=== PATIENT | male | born 1965 | race Caucasian/White ===

== ENCOUNTER 2019-10-16 17:05 | Inpatient (IN) | payer OTHER ==
[~2019-10-16] VITALS: Ht 190.5 cm; Wt 111.1 kg
[2019-10-16] VITALS (9 sets, daily range): BP systolic 139–223; BP diastolic 80–135
[2019-10-16 17:29] LABS: ABSOLUTE BASOPHILS 0.1 thou/uL (0.0-0.2); ABSOLUTE EOSINOPHILS 0.1 thou/uL (0.0-0.7); ABSOLUTE LYMPHOCYTES 3.2 thou/uL (0.8-5.3); ABSOLUTE NEUTROPHILS 12.4 thou/uL (1.6-8.1); BASOPHILS 0.8 %; EOSINOPHILS 0.6 %; HEMATOCRIT 53.4 % (42.0-52.0); HEMOGLOBIN 18.2 gm/dL (14.0-18.0); LYMPHOCYTES 19.1 %; MCH 29.4 pg (26.0-34.0); MCHC 34.1 g/dL (28.0-37.0); MCV 86.1 fL (80.0-100.0); MONOCYTES 6.2 %; MPV 8.4 fl. (7.2-11.1); NUCLEATED RBCS 0 /100WBC; PLATELET COUNT* 375 thou/uL (150-400); POLYS 73.3 %; RDW-CV 14.4 % (10.5-14.5); WBC 16.9 thou/uL (4.0-11.0)
[2019-10-16 17:33] LABS: POTASSIUM 4.4 mmol/L (3.5-5.1)
[2019-10-16 17:34] LABS: APTT 27.1 Seconds (25.0-31.3); PROTIME 10.1 Seconds (9.20-11.50)
[2019-10-16] MEDS ORDERED: HUMALOG100 UNIT/1 SUBQ (17:55)
[2019-10-16 21:14] LABS: ANION GAP 11 mmol/L (7-16); BUN 14 mg/dL (7-18); CALCIUM 8.2 mg/dL (8.5-10.1); CHLORIDE 101 mmol/L (98-107); CO2 26 mmol/L (21-32); CREATININE 0.9 mg/dL (0.6-1.3); GLUCOSE 356 mg/dL (70-99); SODIUM 138 mmol/L (136-145)
[2019-10-16 21:18] LABS: CHOLESTEROL 209 mg/dL (<200); HDL CHOLESTEROL 27 mg/dL (>40); LDL CHOLESTEROL 128 mg/dL (<100); TC:HDL 7.7 Ratio (Not establshd); TRIGLYCERIDE 274 mg/dL (<150); VLDL 55 mg/dL (<40)
[2019-10-16 21:22] LABS: SERUM ASSESSMENT Clear
[2019-10-16 21:31] LABS: CK-MB MASS 212.4 ng/mL (<0.5-3.6)
[2019-10-16 21:40] LABS: TROPONIN-I LEVEL 123.91 ng/mL (<0.06)
[2019-10-17] VITALS (15 sets, daily range): BP systolic 105–157; BP diastolic 18–87
[2019-10-17 04:09] LABS: HEMATOCRIT 49.8 % (42.0-52.0); HEMOGLOBIN 16.6 gm/dL (14.0-18.0); MCHC 33.4 g/dL (28.0-37.0); MCV 86.6 fL (80.0-100.0); MPV 8.3 fl. (7.2-11.1); RBC 5.75 mil/uL (4.50-6.00); RDW-CV 14.2 % (10.5-14.5); WBC 15.2 thou/uL (4.0-11.0)
[2019-10-17 05:01] LABS: ALBUMIN 3.4 g/dL (3.4-5.0); ALKALINE PHOSPHATASE 65 U/L (46-116); ANION GAP 11 mmol/L (7-16); BUN 16 mg/dL (7-18); CALCIUM 8.4 mg/dL (8.5-10.1); CHLORIDE 105 mmol/L (98-107); CK-MB MASS 191.2 ng/mL (<0.5-3.6); CO2 24 mmol/L (21-32); CREATININE 0.9 mg/dL (0.6-1.3); GLUCOSE 250 mg/dL (70-99); POTASSIUM 3.7 mmol/L (3.5-5.1); SGOT 533 U/L (15-37); SGPT 78 U/L (30-65); SODIUM 140 mmol/L (136-145); TOTAL BILIRUBIN 0.6 mg/dL (<0.1-1.0); TOTAL PROTEIN 6.5 g/dL (6.4-8.2)
[2019-10-17 06:15] LABS: TROPONIN-I LEVEL > 200.00 ng/mL (<0.06)
--- NOTE | 2019-10-17 09:33 | EKG ---
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: : 1965 Requested By: Gary Jaramillo Order Number: [id number] Reading MD: Bora Craig Measurements Intervals [place] Rate: 58 P: 67 SC: 138 QRS: 41 QRSD: 157 T: 102 QT: 501 QTc: 493 Interpretive Statements Sinus rhythm Right bundle branch block Inferior infarct, acute (RCA) Probable RV involvement, suggest recording right precordial leads No previous ECG available for comparison Electronically Signed On 10-17-2019 9:32:14 CDT by Bora Craig [email or web address] <ELECTRONICALLY SIGNED> By: Bora Craig MD, FACC 10/17/1930 1 Bora Craig MD, [facility] /EPI
[2019-10-17 09:46] LABS: CK-MB MASS 134.3 ng/mL (<0.5-3.6)
[2019-10-17 09:47] LABS: TROPONIN-I LEVEL 181.33 ng/mL (<0.06)
--- NOTE | 2019-10-17 10:48 | EKG ---
[place] [address] ELECTROCARDIOGRAM REPORT Name: PRECIOUS ASHBY Room: [address] IN M.R.#: [id number] Admission: 10/16/19 Attend Phys: Gary Jaramillo, Discharge: Date of : 69 Date of Service: 10/16/19 1709 Report #: [id number] THIS REPORT FOR: //name// [facility] ED Test Date: 2019-10-16 Test Time: 17:09:26 Pat Name: PRECIOUS ASHBY Department: Room: [facility] Gender: M Gusset Stitcher: TP : 1965 Requested By: Modesto Raya Order Number: [id number] MD: Bora Craig Measurements Intervals [place] Rate: 99 P: 57 OK: 133 QRS: 95 QRSD: 158 T: 94 QT: 362 QTc: 465 Interpretive Statements Sinus tachycardia ventricular premature complexes Probable left atrial enlargement RBBB and LPFB Inferior infarct, acute (RCA) Probable RV involvement, suggest recording right precordial leads Baseline wander in lead(s) V5 No previous ECG available for comparison Electronically Signed On 10-17-2019 10:47:14 CDT by Bora Craig [email or web address] <ELECTRONICALLY SIGNED> By: Bora Craig MD, FACC 10/17/19 1047 1709 1709 Bora Craig MD, FAC /EPI
--- NOTE | 2019-10-17 15:02 | CARD ---
[address] [address] CARDIAC CATH REPORT Name: PRECIOUS ASHBY Room: [address] IN [facility]#: [id number] Admission: 10/16/19 Attend Phys: Gary Jaramillo MD Discharge: Date of : [birth year] Report #: [id number] THIS REPORT FOR: //name// cc: HUGO - No family physician/PCP HUGO - No family physician/PCP ~ APPROVED REPORT Study performed: 10/16/2019 17:15:56 Patient Details Patient Status: ED Room #: The patient is a 54 year-old male Event Personnel Gary Jaramillo Sr Technical Sales Consultant, Sherley Chandra RN, Jamilah Rivera RTR ScrGeoff anders Jessie RTR Monitor, Conrad Valadez Tobacco Sample Puller Procedures Performed Art Access - R femoral artery Left Heart Cath w/or w/o Coronaries JOSE Revasc AMI Total/Sub Single RCA Cardioversion Hemostasis w/ Angioseal; DC cardioversion with rhythm reverting from atrial fibrillation to sinus after loading with amiodarone Indication STEMI Risk Factors Hypercholesterolemia Admission/Lab Medications/Medications given during procedure Angiomax bolus and infusion; amiodarone boluses Procedure Narrative The patient was brought emergently to the Cardiac Catheterization Laboratory and was prepped and draped in a sterile manner. The right femoral was infiltrated with 2% Lidocaine subcutaneous anesthesia. A Convoy 6 FR sheath was inserted into the right femoral artery. Coronary angiography was performed using coronary diagnostic catheters. The right coronary system was accessed and visualized with a Diagnostic 6 Fr JR 4 catheter. The left coronary system was accessed and visualized with a Diagnostic 6 Fr JL 4 catheter. The left ventricle was accessed and visualized with a Diagnostic 6 Fr Pigtail catheter. Left ventricular/Aortic Valve gradient assessed via catheter pullback. Closure device was deployed [place] [address] CARDIAC CATH REPORT Name: PRECIOUS ASHBY Room: [address]#: [id number] Admission: 10/16/19 Attend Phys: Gary Jaramillo MD Discharge: Date of : 69 Report #: [id number] STS 6Fr. The patient tolerated the procedure well and there were no complications associated with the procedure. There was no hematoma. The patient was cardioverted at 300 J two times. Intraoperative Conscious Sedation Sedation start time: 17:40 Case end Time: 18:33 Fentanyl 150 mcg Versed 5 mg Fluoro Time: 8.5 minutes Dose: DAP 14191 cGycm2 1523 mGy Contrast Type and Amount: Visipaque 200 ml Coronary Angiography The patient's coronary anatomy is right dominant. Diagnostic Cath Left Main 0% narrowing LAD 40% mid LAD narrowing Circumflex 30% mid circumflex narrowing Right Coronary 100% occlusion of the dominant right coronary artery just beyond the acute margin with prominent intraluminal thrombus Left Ventriculography Left Ventriculography was not performed. Hemodynamics The aortic pressure is 116/80 mmHg with a mean of 93 mmHg. The left ventricular pressure is 130/11 mmHg with a mean of mmHg. The left ventricular end diastolic pressure is 21 mmHg. There was no gradient across the aortic valve upon pullback. PCI Technique Lesion Anticoagulation was achieved with Angiomax Drip. Patient was preloaded with Angiomax IV 17 ml. Percutaneous coronary intervention was performed on the distal right coronary artery. The lesion stenosis prior to intervention was 100% with АННА 0 flow. A 6F JR 4.0 Guide Catheter was used to engage the right ostium. A IG: BMW 190cm Interventional Guidewire was used to cross the lesion. BALLOON DILATION A Balloon catheter Trek RX 2.5 X 12 was inserted and inflated up to 12.00atm for 10seconds. Additional Inflation: 18.00atm for 17seconds. Additional Inflation: 18.00atm for 15seconds. [place] [address] CARDIAC CATH REPORT Name: PRECIOUS ASHBY Room: [address]#: [id number] Admission: 10/16/19 Attend Phys: Gary Jaramillo MD Discharge: Date of : 69 Report #: [id number] STENT DEPLOYMENT A drug-eluting stent Adam RX Stent 3.0X15mm was inserted and inflated up to 12.00atm for 7seconds. Additional Inflation: 16.00atm for 8seconds. Additional Inflation: 16.00atm for 9seconds. Final angiography reveals 0 % stenosis with АННА 3 flow. Conclusion [address] segment elevation myocardial infarction #2 significant coronary artery disease characterized by the following: A 100% right coronary occlusion just beyond the acute margin with prominent intraluminal thrombus B 40% mid LAD narrowing C 30% mid circumflex narrowing #2 moderate elevation of left ventricle end-diastolic pressure at rest #3 successful percutaneous coronary intervention with deployment of a drug-eluting stent at the site of 100% right coronary occlusion just beyond the acute margin with 0% residual narrowing АННА-3 flow to the distal vessel and no residual thrombus #4 successful DC cardioversion with the rhythm reverting from atrial fibrillation to sinus after loading with amiodarone; the cardioversion was performed with 300 Watt seconds 2 Recommendations Cardiac Risk Reduction Program Aggressive Medical Therapy Medications Administered Aspirin (any) [place] [address] CARDIAC CATH REPORT Name: PRECIOUS ASHBY Room: [address]#: [id number] Admission: 10/16/19 Attend Phys: Gary Jaramillo MD Discharge: Date of : 69 Report #: [id number] Diagnostic Cath Approved by: Gary Jaramillo MD Date/Time: 10/17/2019 14:57:57 <ELECTRONICALLY SIGNED> By: Conrad Valadez MD, FACC 10/17/19 1501 1501 1501Joharper Valadez MD, [facility] /INF
--- NOTE | 2019-10-17 15:18 | 2DMMODE ---
[place] [address] 2 D/M-MODE ECHOCARDIOGRAM Name: PRECIOUS ASHBY Room: [address] IN [place].#: [id number] Admission: 10/16/19 Attend Phys: Gary Jaramillo, Discharge: Date of : 69 Date of Service: 10/17/19 1517 Report #: [id number] THIS REPORT FOR: cc: FAM - No family physician/PCP FAM - No family physician/PCP Bora Craig MD [facility] ~ APPROVED REPORT Study performed: 10/17/2019 09:46:04 EXAM: Comprehensive 2D, Doppler, and color-flow Echocardiogram Patient Location: In-Patient Room #: 005 Status: routine BSA: 2.33 HR: 70 bpm BP: 127/78 mmHg Rhythm: NSR Other Information Study Quality: Excellent Indications Acute PR 2D Dimensions IVSd: 16.86 (7-11mm) LVOT Diam: 22.63 (18-24mm) LVDd: 50.44 mm PWd: 15.12 (7-11mm) Ascending Ao: 30.25 (22-36mm) LVDs: 34.28 (25-40mm) Aortic Root: 31.50 mm Volumes Left Atrial Volume (Systole) LA ESV Index: 35.40 mL/m2 Aortic Valve AoV Peak Jj.: 1.71 m/s AO Peak Gr.: 11.63 mmHg LVOT Max P.16 mmHg AO Mean Gr.: 6.39 mmHg LVOT Mean P.55 mmHg LVOT Max V: 1.59 m/s AO V2 VTI: 27.00 cm LVOT Mean V: 0.96 m/s ALESSIO (VTI): 3.75 cm2 LVOT V1 VTI: 25.18 [place] [address] 2 D/M-MODE ECHOCARDIOGRAM Name: PRECIOUS ASHBY Room: [address]#: [id number] Admission: 10/16/19 Attend Phys: Gary Jaramillo, Discharge: Date of : 69 Date of Service: 10/17/19 1517 Report #: [id number] Mitral Valve E/A Ratio: 1.33 MV Decel. Time: 234.13 ms MV E Max Jj.: 0.86 m/s MV PHT: 67.90 ms MVA (PHT): 3.24 cm2 TDI E/Lateral E': 10.75 E/Medial E': 10.75 Medial E' Jj.: 0.08 m/s Lateral E' Jj.: 0.08 m/s Pulmonary Valve PV Peak Jj.: 1.03 m/s PV Peak Gr.: 4.22 mmHg Tricuspid Valve RAP Estimate: 5.00 mmHg TR Peak Gr.: 25.44 mmHg RVSP: 30.00 mmHg PA Pressure: 30.00 mmHg Left Ventricle The left ventricle is normal size. There is normal LV segmental wall motion. Moderate concentric left ventricular hypertrophy. Left ventricular systolic function is normal. The left ventricular ejection fraction is within the normal range. LVEF is 60-65%. The left ventricular diastolic function is normal. Right Ventricle The right ventricle is normal size. The right ventricular systolic function is normal. Atria Left atrium is mildly dilated. The right atrium size is normal. Aortic Valve The aortic valve is normal in structure. No aortic regurgitation is present. There is no aortic valvular stenosis. Mitral Valve The mitral valve is normal in structure. Trace mitral regurgitation. No evidence of mitral valve stenosis. Tricuspid Valve The tricuspid valve is normal in structure. Trace tricuspid regurgitation. estimated pa pressure 40 [place] [address] 2 D/M-MODE ECHOCARDIOGRAM Name: PRECIOUS ASHBY Room: [address]#: [id number] Admission: 10/16/19 Attend Phys: Gary Jaramillo, Discharge: Date of : 69 Date of Service: 10/17/19 1517 Report #: [id number] Pulmonic Valve The pulmonary valve is normal in structure. There is no pulmonic valvular regurgitation. Great Vessels The aortic root is normal in size. IVC is normal in size and collapses >50% with inspiration. Pericardium There is no pericardial effusion. <Conclusion> Moderate concentric left ventricular hypertrophy. LVEF is 60-65%. Left atrium is mildly dilated. Trace tricuspid regurgitation. estimated pa pressure 40 mm Hg <ELECTRONICALLY SIGNED> By: Bora Craig MD, FACC 10/17/19 1517 151 151 Bora Craig MD, FACC /INF
[2019-10-18 00:26] VITALS: BP 145/73
[2019-10-18 04:25] VITALS: BP 121/74; BP 130/75
[2019-10-18 05:48] LABS: TROPONIN-I LEVEL 56.53 ng/mL (<0.06)
[2019-10-18 06:09] LABS: CK-MB MASS 21.4 ng/mL (<0.5-3.6)
[2019-10-18 08:00] VITALS: BP 143/78
[2019-10-18] MEDS ORDERED: COZAAR 50 MG TA50 M1 PO (09:21)
[2019-10-18] MEDS ORDERED: LIPITOR 40 MG T40 M1 PO (09:21)
[2019-10-18] MEDS ORDERED: NITROGLYCERIN0.4 MG SUBLING (09:21)
[2019-10-18] MEDS ORDERED: ASPIR 8181 MG PO (09:21)
[2019-10-18] MEDS ORDERED: EFFIENT10 MG PO (09:21)
--- NOTE | 2019-10-18 16:38 | H ---
[place] [address] HISTORY AND PHYSICAL Name: PRECIOUS ASHBY Room: [address]#: [id number] Admission: 10/16/19 Attend Phys: Gary Jaramillo MD Discharge: 10/18/19 Date of : 69 Report #: [id number] THIS REPORT FOR: //name// cc: HUGO Arreola family physician/PCP HUGO Arreola family physician/PCP ~ THIS REPORT FOR: //name// CC: HUGO physician/PCP Modesto Raya DATE OF SERVICE: 10/16/2019 ADMITTING DIAGNOSIS: Inferior wall ST elevation myocardial infarction. HISTORY OF PRESENT ILLNESS: The patient is a 54-year-old gentleman with no prior cardiac history. He has been having intermittent midsternal chest discomfort with acute onset approximately 2 hours prior to admission. This pain is midsternal, associated with shortness of breath and diaphoresis. The pain has been persistent. He was given aspirin and sublingual nitro as well as nitro paste with partial resolution of his discomfort. He continues to have mild pain. EKG shows ST elevation in the inferior leads with right bundle branch block. CARDIAC RISK FACTORS: Include hypertension, dyslipidemia, hypertension, diabetes, and tobacco use. PAST MEDICAL HISTORY: 1. Hypertension. 2. Type 2 diabetes mellitus. 3. Chronic tobacco use. 4. Umbilical hernia repair. ALLERGIES: None documented. FAMILY HISTORY: Noncontributory. SOCIAL HISTORY: The patient does smoke cigarettes daily. REVIEW OF SYSTEMS: A 14-point review of systems is otherwise unremarkable. PHYSICAL EXAMINATION: VITAL SIGNS: Stable. Blood pressure 170/113. Pulse is 72 and regular. GENERAL: This is a pleasant gentleman in no distress. Mood and affect appropriate. HEENT: Extraocular muscles intact. Mucous membranes are moist. NECK: No jugular venous distention. There [place] [address] HISTORY AND PHYSICAL Name: SYMONEPRECIOUS Room: [address]#: [id number] Admission: 10/16/19 Attend Phys: Gary Jaramillo MD Discharge: 10/18/19 Date of : 69 Report #: [id number] CHEST: Reveals clear lung quintana without wheezes or rales. CARDIOVASCULAR: Reveals a regular rhythm without gallop or murmur. ABDOMEN: Reveals normal bowel sounds. The abdomen is soft and nontender. EXTREMITIES: No edema. Peripheral pulses palpable. Skin is dry. IMPRESSION AND RECOMMENDATIONS: 1. ST elevation myocardial infarction, likely inferior wall myocardial infarction. We will proceed with coronary angiography and intervention. 2. Hypertension. We will adjust antihypertensive regimen post-catheterization for improved control. 3. Hyperlipidemia. Start statin agent based on the patient's home regimen. 4. Chronic tobacco use. Cessation will be discussed and advised. <ELECTRONICALLY SIGNED> By: Gary Jaramillo MD, [facility] 10/18/19 1638 [id number] 1748Gary Jaramillo MD, FACC /nt
--- NOTE | 2019-10-18 16:38 | D ---
[address] [address] DISCHARGE SUMMARY Name: PRECIOUS ASHBY Room: [address] IN M.R.#: [id number] Admission: 10/16/19 Attend Phys: Gary Jaramillo MD Discharge: 10/18/19 Date of : 69 Report #: [id number] THIS REPORT FOR: //name// cc: HUGO Arreola family physician/PCP HUGO Arreola family physician/PCP ~ THIS REPORT FOR: //name// CC: HUGO physician/PCP Gary Jaramillo DISCHARGE DIAGNOSES: 1. Acute inferior wall ST elevation myocardial infarction. 2. Coronary artery disease. 3. Hypertension. 4. Dyslipidemia. 5. Insulin requiring diabetes. PROCEDURES DURING THE HOSPITALIZATION: 1. Urgent coronary catheterization with coronary angiography and left heart catheterization. 2. Percutaneous coronary intervention to a totally occluded distal right coronary artery. 3. Echocardiogram. HOSPITAL COURSE: The patient was admitted to the hospital through the Emergency Room in the setting of an acute inferior wall myocardial infarction. The patient was taken emergently to the cardiac catheterization lab. Intervention was performed with 3.0 x 15 mm drug-eluting stent placed to the distal right coronary artery with excellent result. The patient tolerated the procedure well without complication. Periinfarct, the patient did have some brief runs of a wide complex irregular tachycardia, felt to be atrial fibrillation that resolved. He was cardioverted twice in the catheterization lab. Post-procedure, his vital signs remained stable and rhythm remained stable. Echocardiogram showed preserved left ventricular systolic function, moderate LVH and mild left atrial enlargement. PA pressure was felt to be 40 mmHg. DISCHARGE MEDICATIONS: Will include Effient 10 mg daily, Lipitor 40 mg at bedtime, Nitrostat sublingual p.r.n., losartan 50 mg daily, aspirin 81 mg daily. FOLLOWUP: The patient is to follow up with his primary physician in [place], [place] and established with Cardiology there. <ELECTRONICALLY SIGNED> By: Gary Jaramillo MD, FACC 10/18/19 1638 0924 0936Micmeagan Jaramillo MD, FACC /nt
== END 2019-10-18 11:56 | disposition home or self-care (01) | DRG 246 ==
LOC: M.ERS 17:05 → M.ICU 17:38 → M.TBA-CV 17:38 → M.ICU 19:12 → M.2W 10-17 14:06
PROVIDERS: Emergency Medicine; ADMIT Internal Medicine Cardiovascular Disease
PROC: 027034Z Dilation of Coronary Artery, One Artery with Drug-eluting Intraluminal Device, Percutaneous Approach (ICD-10-PCS; principal; 2019-10-16)
PROC: 5A2204Z Restoration of Cardiac Rhythm, Single (ICD-10-PCS; principal; 2019-10-16)
PROC: B211YZZ Fluoroscopy of Multiple Coronary Arteries using Other Contrast (ICD-10-PCS; principal; 2019-10-16)
PROC: 4A023N7 Measurement of Cardiac Sampling and Pressure, Left Heart, Percutaneous Approach (ICD-10-PCS; principal; 2019-10-16)
DX: I21.19 ST elevation (STEMI) myocardial infarction involving other coronary artery of inferior wall (principal); I50.41 Acute combined systolic (congestive) and diastolic (congestive) heart failure; I10 Essential (primary) hypertension; E11.9 Type 2 diabetes mellitus without complications; E78.5 Hyperlipidemia, unspecified; I25.10 Atherosclerotic heart disease of native coronary artery without angina pectoris; I48.91 Unspecified atrial fibrillation; Z71.6 Tobacco abuse counseling; Z79.899 Other long term (current) drug therapy; Z23 Encounter for immunization